=== PATIENT | male | born 2000 | race African-American/Black ===

== ENCOUNTER 2021-04-13 20:17 | Emergency (ER) | payer OTHER ==
[~2021-04-13] VITALS: Ht 182.9 cm; Wt 96.0 kg
[2021-04-13] MEDS ORDERED: TETANUS, DIPHTHERIA, PERTUSSIS VAC/PF 0.5ML (>10YR OLD) IM ONE (22:30)
[2021-04-13] MEDS ORDERED: IBUPROFEN 400MG TABLET PO ONE (22:30)
[2021-04-13] MEDS ORDERED: LIDOCAINE HCL 1% 20ML VIAL (Pyxis) INJ INFIL ONE (22:30)
[2021-04-13] MEDS ORDERED: BACITRACIN ZINC OINT UDPKT TOP ONE (22:30)
[2021-04-14] MEDS ORDERED: ACET-2708 MT (00:49)
[2021-04-14 01:05] VITALS: BP 128/74
== END 2021-04-14 01:15 | disposition home or self-care (01) ==
LOC: ER 20:17
DX: S61.217A Laceration without foreign body of left little finger without damage to nail, initial encounter (principal); S61.213A Laceration without foreign body of left middle finger without damage to nail, initial encounter; V43.62XA Car passenger injured in collision with other type car in traffic accident, initial encounter; Y93.89 Activity, other specified; Y92.488 Other paved roadways as the place of occurrence of the external cause
CPT/HCPCS: 12002; 73130; 90471; 90715; 99283; J3490